=== PATIENT | male | born 1975 | race Hispanic/Latino ===

== ENCOUNTER 2018-01-11 06:37 | Emergency (ER) | payer OTHER ==
[2018-01-11] MEDS ORDERED: FLUORESCEIN SODIUM 0.6 MG/WRAP ONE (06:57)
[2018-01-11] MEDS ORDERED: TETRACAINE HCL 0.5% 2ML OPTH ONE (06:57)
--- NOTE | 2018-01-11 07:23 | ER ---
Nurse's Notes [facility] Name: Rolando Tidwell Age: 42 yrs Sex: Male : 1975 Arrival Date: 01/11/2018 Time: 06:37 Bed 7 Private MD: Diagnosis: Injury of conjunctiva and corneal abrasion without foreign body, right eye Presentation: 01/11 06:51 Presenting complaint: Patient states: he was working yesterday and got dust in his eye bb which was very itchy yesterday but this morning his vision in his right eye seems cloudy and it's reddened and irritated but denies pain to right eye. Transition of care: patient was not received from another setting of care. Onset of symptoms was January 10, 2018. Risk Assessment: Do you want to hurt yourself or someone else? Patient reports no desire to harm self or others. Initial Sepsis Screen: Does the patient meet any 2 criteria? No. Patient's initial sepsis screen is negative. Does the patient have a suspected source of infection? No. Patient's initial sepsis screen is negative. Care prior to arrival: None. 06:51 Method Of Arrival: Ambulatory bb 06:51 Acuity: FREDA 4 bb Historical: - Allergies: 06:56 No Known Allergies; bb - Home Meds: 06:56 Metformin Oral [Active]; bb - PMHx: 06:56 Diabetes - NIDDM; bb - PSHx: 06:56 None; bb - Immunization history:: Adult Immunizations unknown, Last tetanus immunization: unknown. - Social history:: Smoking status: Patient/guardian denies using tobacco, Patient/guardian denies using alcohol, street drugs. - Ebola Screening: : No symptoms or risks identified at this time. Screenin:45 Abuse screen: Denies threats or abuse. Denies injuries from another. Nutritional sg screening: No deficits noted. Tuberculosis screening: No symptoms or risk factors identified. Never had TB. Fall Risk None identified. Assessment: 06:49 General: Appears in no apparent distress. comfortable, Behavior is calm, cooperative, ao appropriate for age. Pain: Complains of pain in right eye Pain currently is 0 out of 10 on a pain scale. Neuro: Level of Consciousness is awake, alert, obeys commands, Oriented to person, place, time, situation, Appropriate for age Moves all extremities. Full function Speech is normal, Facial symmetry appears normal, Pupils are PERRLA. Cardiovascular: Capillary refill < 3 seconds Patient's skin is warm and dry. Respiratory: Airway is patent Respiratory effort is even, unlabored, Respiratory pattern is regular, symmetrical. GI: Abdomen is non-distended. : No signs and/or symptoms were reported regarding the genitourinary system. EENT: Eyes are tearing on outer aspect of conjuctiva of right eye, iris of right eye and inner aspect of conjuctiva of right eye. Derm: Skin is intact, Skin is pink, warm \T\ dry. normal, Skin temperature is warm. Musculoskeletal: No signs and/or symptoms reported regarding the musculoskeletal system. Range of motion: intact in all extremities. Vital Signs: 06:56 BP 151 / 95; Pulse 79; Resp 16 S; Temp 98.4(O); Pulse Ox 99% on R/A; Weight 88.45 kg bb (R); Height 5 ft. 8 in. (172.72 cm) (R); Pain 0/10; 07:45 BP 130 / 86; Pulse 73 MON; Resp 16 S; Pulse Ox 98% on R/A; Pain 0/10; sg 06:56 Body Mass Index 29.65 (88.45 kg, 172.72 cm) bb Visual Acuity: 06:56 Left Eye Visual acuity 20/25, Pupil size 4 mm, ; Right Eye Visual acuity 20/100, Pupil bb size 4 mm, ; Both Eyes Visual acuity 20/25; Without Lenses; ED Course: 06:37 Patient arrived in ED. ds1 06:53 Triage completed. bb 06:56 Arm band placed on Patient placed in an exam room, on a stretcher, on pulse oximetry. bb 07:00 Assist provider with eye exam of right eye. using fluorescein stain. sg 07:12 Rafael Tidwell PA is PHCP. jr8 07:12 Wilfredo Larose MD is Attending Physician. jr8 07:13 Brett Pastor, BHUPENDRA is Primary Nurse. sg 07:22 Juan Pablo Case MD is Referral Physician. jr8 07:45 Patient has correct armband on for positive identification. Pulse ox on. NIBP on. sg 07:45 No provider procedures requiring assistance completed. Patient did not have IV access sg during this emergency room visit. Administered Medications: 07:30 Drug: Tetracaine Drops 0.5 % 1 drops Route: Ophthalmic; Site: right eye; 07:48 Drug: Gentamicin Drops 0.3 % 2 drops Route: Ophthalmic; Site: right eye; Outcome: 07:23 Discharge ordered by . willa 07:45 Discharged to home ambulatory. sg 07:45 Condition: good 07:45 Discharge instructions given to patient, Instructed on discharge instructions, follow up and referral plans. the need for admit, medication usage, safety practices, Demonstrated understanding of instructions, follow-up care, medications, Prescriptions given X 1. 07:48 Patient left the ED. sg 07:52 Patient left the ED. aa5 Signatures: Brett Pastor RN RN Ashley Horta ds1 Myesha Sandy RN RN Jolynn Quintero RN RN aa5 Rafael Tidwell PA PA jrVince Pillai RN RN lamont
--- NOTE | 2018-01-11 07:23 | EDPHYS ---
Physician Documentation [facility] Name: Rolando Tidwell Age: 42 yrs Sex: Male : 1975 Arrival Date: 01/11/2018 Time: 06:37 Bed 7 Private MD: ED Physician Wilfredo Larose HPI: 01/11 07:30 This 42 yrs old Male presents to ER via Ambulatory with complaints of Foreign jr8 Body In Eye. 07:30 The patient is experiencing blurred vision, pain, redness, tearing. Onset: The jr8 symptoms/episode began/occurred acutely, yesterday. Duration: the symptoms are continuous. Aggravated by rubbing, Alleviated by nothing. Associated signs and symptoms: Pertinent positives: None. Patient does not utilize any form of vision correction. Severity of symptoms: At their worst the symptoms were mild in the emergency department the symptoms are unchanged. The patient has not experienced similar symptoms in the past. The patient has not recently seen a physician. Patient stated that he was outside working on a [employer]. Stated that it was windy and felt irritation in eye yesterday while working that has persisted through today without relief . Historical: - Allergies: 06:56 No Known Allergies; bb - Home Meds: 06:56 Metformin Oral [Active]; bb - PMHx: 06:56 Diabetes - NIDDM; bb - PSHx: 06:56 None; bb - Immunization history:: Adult Immunizations unknown, Last tetanus immunization: unknown. - Social history:: Smoking status: Patient/guardian denies using tobacco, Patient/guardian denies using alcohol, street drugs. - Ebola Screening: : No symptoms or risks identified at this time. ROS: 07:30 Constitutional: Negative for fever, chills, and weight loss. jr8 07:30 Eyes: Positive for blurry vision, pain, redness, tearing. 07:30 All other systems are negative. Exam: 07:30 Visual Acuity: Visual acuity is within normal limits. jr8 07:30 Head/Face: Normocephalic, atraumatic. ENT: Nares patent. No nasal discharge, no septal abnormalities noted. Tympanic membranes are normal and external auditory canals are clear. Oropharynx with no redness, swelling, or masses, exudates, or evidence of obstruction, uvula midline. Mucous membranes moist. Cardiovascular: Regular rate and rhythm with a normal S1 and S2. No gallops, murmurs, or rubs. Normal PMI, no JVD. No pulse deficits. Respiratory: Lungs have equal breath sounds bilaterally, clear to auscultation and percussion. No rales, rhonchi or wheezes noted. No increased work of breathing, no retractions or nasal flaring. Skin: Warm, dry with normal turgor. Normal color with no rashes, no lesions, and no evidence of cellulitis. MS/ Extremity: Pulses equal, no cyanosis. Neurovascular intact. Full, normal range of motion. Neuro: Awake and alert, GCS 15, oriented to person, place, time, and situation. Cranial nerves II-XII grossly intact. Motor strength 5/5 in all extremities. Sensory grossly intact. Cerebellar exam normal. Normal gait. 07:30 Eyes: Periorbital structures: appear normal, Pupils: equal, round, and reactive to light and accomodation, Extraocular movements: intact throughout, Conjunctiva: injected, in the right eye, Corneas: abrasion, that is small, approximately 3 mm(s), on the right, at 6 o'clock, a fluorescein strip employed to appreciate the findings. Vital Signs: 06:56 BP 151 / 95; Pulse 79; Resp 16 S; Temp 98.4(O); Pulse Ox 99% on R/A; Weight 88.45 kg bb (R); Height 5 ft. 8 in. (172.72 cm) (R); Pain 0/10; 07:45 BP 130 / 86; Pulse 73 MON; Resp 16 S; Pulse Ox 98% on R/A; Pain 0/10; sg 06:56 Body Mass Index 29.65 (88.45 kg, 172.72 cm) bb Visual Acuity: 06:56 Left Eye Visual acuity 20/25, Pupil size 4 mm, ; Right Eye Visual acuity 20/100, Pupil bb size 4 mm, ; Both Eyes Visual acuity 20/25; Without Lenses; Procedures: 07:30 Eye Exam: Fluorescein. jr8 MDM: 07:12 Patient medically screened. jr8 07:22 Data reviewed: vital signs, nurses notes, and as a result, I will discharge patient. jr8 Data interpreted: Pulse oximetry: on room air is 99 %. Interpretation: normal. Counseling: I had a detailed discussion with the patient and/or guardian regarding: the historical points, exam findings, and any diagnostic results supporting the discharge/admit diagnosis, the need for outpatient follow up, an opthalmologist, to return to the emergency department if symptoms worsen or persist or if there are any questions or concerns that arise at home. Administered Medications: 07:30 Drug: Tetracaine Drops 0.5 % 1 drops Route: Ophthalmic; Site: right eye; sg 07:48 Drug: Gentamicin Drops 0.3 % 2 drops Route: Ophthalmic; Site: right eye; sg Disposition: 09:57 Co-signature as Attending Physician, Wilfredo Larose MD. rn Disposition: 01/11/18 07:23 Discharged to Home. Impression: Injury of conjunctiva and corneal abrasion without foreign body, right eye. - Condition is Stable. - Discharge Instructions: Corneal Abrasion. - Prescriptions for Gentamicin 0.3 % Ophthalmic Drops - instill 2 drops by OPHTHALMIC route every 4 hours for 7 days; 1 bottle. - Work release form, Medication Reconciliation Form, Thank You Letter, Antibiotic Education, Prescription Opioid Use form. - Follow up: Juan Pablo Case MD; When: 24 Hours; Reason: Recheck today's complaints, Continuance of care, Re-evaluation by your physician. - Problem is new. - Symptoms have improved. Signatures: Brett Pastor RN RN sg Ballard, Brenda, RN RN bb Nieto, Roman, MD MD rn Calderon, Audri, RN RN aa5 Rafael Tidwell PA PA jr8 Corrections: (The following items were deleted from the chart) 07:34 07:30 Eye Exam: Tetracaine, willa jr8 07:48 07:23 01/11/2018 07:23 Discharged to Home. Impression: Injury of conjunctiva and sg corneal abrasion without foreign body, right eye. Condition is Stable. Forms are Medication Reconciliation Form, Thank You Letter, Antibiotic Education, Prescription Opioid Use. Follow up: Juan Pablo Case; When: 24 Hours; Reason: Recheck today's complaints, Continuance of care, Re-evaluation by your physician. Problem is new. Symptoms have improved. jr8 07:52 07:48 01/11/2018 07:23 Discharged to Home. Impression: Injury of conjunctiva and aa5 corneal abrasion without foreign body, right eye. Condition is Stable. Discharge Instructions: Corneal Abrasion. Prescriptions for Gentamicin 0.3 % Ophthalmic Drops - instill 2 drops by OPHTHALMIC route every 4 hours for 7 days; 1 bottle. and Forms are Medication Reconciliation Form, Thank You Letter, Antibiotic Education, Prescription Opioid Use. Follow up: Juan Pablo Case; When: 24 Hours; Reason: Recheck today's complaints, Continuance of care, Re-evaluation by your physician. Problem is new. Symptoms have improved. sg
[2018-01-11] MEDS ORDERED: GENTAMICIN 0.3% OPTH DROP 5ML ONE (07:57)
== END 2018-01-11 07:52 | disposition home or self-care (01) ==
LOC: ER 06:37
DX: S05.01XA Injury of conjunctiva and corneal abrasion without foreign body, right eye, initial encounter (principal); E11.9 Type 2 diabetes mellitus without complications
CPT/HCPCS: 99284

== ENCOUNTER 2018-12-10 15:48 | Inpatient (IN) | payer OTHER ==
--- OUTSIDE RECORDS SUMMARY | 2018-12-10 15:57 | XMS REPORT | Clinical Summary ---
:1975 Author Organization [facility] Address [address] [place] [id number] Care Team Providers Name Role Phone Asked, No Pcp Primary Care Provider Unavailable Allergies Not on File Medications Not on file Active Problems Not on file Encounters Date Type Specialty Care Team Description 01/16/2018 Lab Lab Tin Gonzalez MD 01/16/2018 Lab Lab Asked, No Pcp Tin Gonzalez MD after 12/09/2017 Social History Tobacco Use Types Packs/Day Years Used Date Never Assessed Sex Assigned at Date Recorded Not on file Job Start Date Occupation Industry Not on file Not on file Not on file Travel History Travel Start Travel End No recent travel history available. Last Filed Vital Signs Not on file Plan of Treatment Health Maintenance Due Date Last Done Comments INFLUENZA VACCINE 01/18/2019 Procedures Procedure Name Priority Date/Time Associated Diagnosis Comments FUNGUS SMEAR Routine 01/16/2018 1:00 PM Results for this CDT procedure are in the results section. GRAM STAIN Routine 01/16/2018 1:00 PM Results for this CDT procedure are in the results section. FUNGUS CULTURE Routine 01/16/2018 1:00 PM Results for this CDT procedure are in the results section. EYE CULTURE, Routine 01/16/2018 1:00 PM Results for this ANAEROBIC CDT procedure are in the results section. EYE CULTURE Routine 01/16/2018 1:00 PM Results for this CDT procedure are in the results section. ACRIDINE ORANGE Routine 01/16/2018 1:00 PM Results for this STAIN CDT procedure are in the results section. after 12/09/2017 Results Fungus smear (01/16/2018 1:00 PM CDT) Fungus smear No fungi observed. [facility] DEPARTMENT OF Comment: PATHOLOGY AND Specimen Information [facility] Specimen Source: Corneal scraping Specimen Site: Right Eye Specimen Corneal scraping Performing Organization Address City/State/[facility] Phone Number [facility] DEPARTMENT OF PATHOLOGY AND [address] [place] [phone] [facility] Eye culture, anaerobic (01/16/2018 1:00 PM CDT) Eye culture Brucella blood agar: [facility] DEPARTMENT OF isolate, anaerobic No anaerobes isolated after 7 days. PATHOLOGY AND [facility] Comment: Specimen Information Specimen Source: Corneal scraping Specimen Site: Right Eye Specimen Corneal scraping Performing Organization Address [facility] Phone Number [facility] DEPARTMENT OF PATHOLOGY AND [address] [place] [address] MEDICINE Acridine orange stain (01/16/2018 1:00 PM CDT) Acridine orange Rare WBC's [facility] DEPARTMENT OF stain No organisms seen PATHOLOGY AND [facility] Comment: Specimen Information Specimen Source: Corneal scraping Specimen Site: Right Eye Specimen Corneal scraping Performing Organization Address [facility] Number [facility] DEPARTMENT OF PATHOLOGY AND [address] [place] [phone] GENOMIC MEDICINE Eye culture (01/16/2018 1:00 PM CDT) Eye culture Blood and Chocolate agars and Thioglycollate broth: [facility] DEPARTMENT OF isolate No growth after 7 days. PATHOLOGY AND [facility] Comment: Specimen Information Specimen Source: Corneal scraping Specimen Site: Right Eye Specimen Corneal scraping Performing Organization Address [facility] Phone Number [facility] DEPARTMENT OF PATHOLOGY AND [address] [place] [phone] [place] [address] MEDICINE Gram stain (01/16/2018 1:00 PM CDT) Gram stain isolate Many WBC's [facility] DEPARTMENT OF No organisms seen PATHOLOGY AND [facility] Comment: Specimen Information Specimen Source: Corneal scraping Specimen Site: Right Eye Specimen Corneal scraping Performing Organization Address [facility] Phone Number [facility] DE[facility]MENT OF PATHOLOGY AND [address] [place] [phone] [place] [address] MEDICINE Fungus culture (01/16/2018 1:00 PM CDT) Fungus culture Curvularia species [facility] DEPARTMENT OF isolate At the present time there are no CLSI guidelines for the performance PATHOLOGY AND and/or interpretation of susceptibility testing for the above organism GENOMIC MEDICINE and/or the indicated antimicrobial agent(s). Susceptibility performed by [employer] [address] [place] [address] Natamycin susceptibility performed by [facility], [place] [employer] [place] [facility] [employer] [address] [place] [address] (A) Comment: Specimen Information Specimen Source: Corneal scraping Specimen Site: Right Eye Specimen Corneal scraping Organism Antibiotic Method Susceptibility Curvularia species Amphotericin B BP 0.25 mcg/mL Curvularia species Anidulofungin BP 4 mcg/mL Curvularia species Caspofungin BP 4 mcg/mL Curvularia species Itraconazole BP 0.5 mcg/mL Curvularia species Micafungin BP 4 mcg/mL Curvularia species Posiconazole BP <=0.06 mcg/mL Curvularia species Voriconazole BP 0.5 mcg/mL Curvularia species Natamycin BP 4 mcg/mL Performing Organization Address City/State/[facility] Phone Number [facility] DEPARTMENT OF PATHOLOGY AND [address] [place] [address] [employer] MEDICINE after 12/09/2017 Advance Directives Patient has advance care planning documents on file. For more information, please contact:Ridge Jones[address] [place] [phone]
[2018-12-10] MEDS ORDERED: NA CHLORIDE 0.9% 1,000 ML ONE (16:51)
[2018-12-10 17:06] LABS: Absolute Lymphocytes (CBC) 1.3 K/uL (0.7-4.9); Basophils % 0.6 % (0-1.3); Eosinophils % 0.8 % (0-4.4); Hematocrit 35.7 % (39.6-49.0); Lymphocytes % 7.8 % (15.3-44.8); MPV 7.3 fL (7.6-11.3); Monocytes % 7.8 % (3.3-12.3); RBC Red Blood Cell Count 4.02 M/uL (4.33-5.43)
[2018-12-10 17:20] LABS: Potassium 3.5 mmol/L (3.5-5.1)
--- NOTE | 2018-12-10 17:27 | RAD REPORT ---
EXAM DESCRIPTION: RAD - Ankle Left 3 View - 12/10/2018 4:47 pm CLINICAL HISTORY: Ankle pain, twisting injury COMPARISON: None. FINDINGS: No fracture, dislocation or periosteal reaction. No joint effusion seen. No joint space na rrowing. Soft tissues are prominent around the ankle joint. Baseline for the patient is unknown. Xi rial tree calcifications are present. IMPRESSION: Negative left ankle examination for fracture or acute bone finding. Soft tissue swelling around the ankle joint.
--- NOTE | 2018-12-10 17:30 | RAD REPORT ---
EXAM DESCRIPTION: RAD - Foot Left 3 View - 12/10/2018 4:47 pm CLINICAL HISTORY: Foot pain, twisting injury to the foot and ankle COMPARISON: None. FINDINGS: An acute traumatic fracture is not identified. Soft tissues of the fourth digit are signif icantly thickened. There is very extensive bone destruction with near complete loss of the proximal, middle and distal fourth phalanges. Bone loss changes are evident as well in the fourth metatarsal he ad. Arterial tree calcifications are present. No other bone destructive process seen. No air in the soft tissues. IMPRESSION: Extensive left fourth toe osteomyelitis change with near complete destruction of the fou rth toe. Bone destructive changes involve the fourth metatarsal head as well.
--- NOTE | 2018-12-10 18:36 | EDPHYS ---
Physician Documentation [facility] Name: Rolando Tidwell Age: 43 yrs Sex: Male : 1975 Arrival Date: 12/10/2018 Time: 15:50 Bed 19 Private MD: ED Physician Tang Nieves HPI: 12/10 16:30 This 43 yrs old Male presents to ER via Ambulatory with complaints of Ankle cp Injury. 16:30 The patient presents with pain, that is acute, swelling, tenderness. cp 16:30 The complaints affect the left lower leg and left foot. Context: resulted from an cp unknown cause, the patient can fully bear weight, the patient is able to ambulate, Problem is a result from a previous injury: No. Historical: - Allergies: 16:05 No Known Allergies; aa5 - Home Meds: 16:05 Metformin Oral [Active]; atorvastatin oral oral [Active]; insulin degludec and aa5 liraglutide injection [Active]; - PMHx: 16:05 Diabetes - IDDM; Hyperlipidemia; aa5 - PSHx: 16:05 None; aa5 - Immunization history:: Adult Immunizations up to date. - Social history:: Smoking status: Patient/guardian denies using tobacco. - Ebola Screening: : No symptoms or risks identified at this time. ROS: 16:35 Eyes: Negative for injury, pain, redness, and discharge. cp 16:35 Constitutional: Negative for body aches, chills, fever, poor PO intake. 16:35 ENT: Negative for drainage from ear(s), ear pain, sore throat, difficulty swallowing, cp difficulty handling secretions. 16:35 Cardiovascular: Negative for chest pain, palpitations. 16:35 Respiratory: Negative for cough, shortness of breath, wheezing. 16:35 Abdomen/GI: Negative for abdominal pain, nausea, vomiting, and diarrhea, black/tarry stool, rectal bleeding. 16:35 MS/extremity: Positive for pain, swelling, tenderness, warmth, of the left foot and left lower leg, Negative for paresthesias. 16:35 Skin: Positive for cellulitis, erythema, of the left foot. 16:35 Neuro: Negative for altered mental status, headache, weakness. 16:35 All other systems are negative. Exam: 16:42 Constitutional: The patient appears in no acute distress, alert, awake, cp non-diaphoretic, non-toxic, well developed, well nourished. 16:42 Head/Face: Normocephalic, atraumatic. cp 16:45 Eyes: Periorbital structures: appear normal, Conjunctiva: normal, no exudate, no cp injection, Sclera: no appreciated abnormality, Lids and lashes: appear normal, bilaterally. 16:45 ENT: External ear(s): are unremarkable, Nose: is normal, Mouth: Lips: moist, Oral cp mucosa: pink and intact, moist, Posterior pharynx: is normal, airway is patent, no erythema, no exudate. 16:45 Chest/axilla: Inspection: normal. 16:45 Cardiovascular: Rate: tachycardic, Rhythm: regular, Edema: pedal edema, that is moderate, ankle edema, that is moderate, JVD: is not appreciated. 16:45 Respiratory: the patient does not display signs of respiratory distress, Respirations: normal, no use of accessory muscles, no retractions, no splinting, no tachypnea, labored breathing, is not present, Breath sounds: are clear throughout, no decreased breath sounds, no stridor, no wheezing. 16:45 Abdomen/GI: Exam negative for discomfort, distension, guarding, Inspection: abdomen appears normal. 16:45 Back: pain, is absent, ROM is normal. 16:45 Skin: cellulitis, that is moderate, irregular, on the left foot, superficial open wound with purulent drainage fourth left toe. 16:45 Neuro: Orientation: to person, place \T\ time. Mentation: is normal, Cerebellar function: is grossly normal, Motor: moves all fours, strength is normal. 18:05 ECG was reviewed by the Attending Physician. cp Vital Signs: 16:05 BP 144 / 81; Pulse 116; Resp 18 S; Temp 99.5(O); Pulse Ox 96% on R/A; Weight 85.28 kg aa5 (R); Height 5 ft. 8 in. (172.72 cm) (R); Pain 4/10; 16:45 BP 144 / 87; Pulse 109; Resp 20; Pulse Ox 100% on R/A; em 17:51 BP 140 / 81; Pulse 116; Resp 18; Temp 99.7(O); Pulse Ox 99% on R/A; Pain 0/10; em 18:56 BP 151 / 90; Pulse 105; Resp 20; Pulse Ox 99% on R/A; Pain 0/10; em 19:15 BP 139 / 84; Pulse 109; Resp 20 S; Temp 99.7(O); Pulse Ox 100% on R/A; cc3 20:05 BP 135 / 87; Pulse 105; Resp 19 S; Temp 99.7(O); Pulse Ox 100% on R/A; cc3 16:05 Body Mass Index 28.59 (85.28 kg, 172.72 cm) aa5 MDM: 16:08 Patient medically screened. cp 17:00 Differential diagnosis: cellulitis, fracture, osteomyelitis, sepsis. cp 18:15 Physician consultation: Jory Ray MD was called at 18:15, was contacted at 18:15, cp regarding admission, to the medical/surgical unit. patient's condition. 18:15 Data reviewed: vital signs, nurses notes, lab test result(s), EKG, radiologic studies, cp plain films, ultrasound, and as a result, I will admit patient. 18:15 Test interpretation: by ED physician or midlevel provider: ECG. 12/10 16:26 Order name: Blood Culture Adult (2) 12/10 16:26 Order name: CBC with Diff; Complete Time: 17:55 12/10 16:26 Order name: BMP; Complete Time: 17:55 12/10 16:26 Order name: Lactate; Complete Time: 17:55 12/10 16:26 Order name: Procalcitonin; Complete Time: 18:45 12/10 18:12 Order name: CRP; Complete Time: 18:10 cp 12/10 16:26 Order name: XRAY Ankle LEFT 3 view; Complete Time: 17:55 / 16:26 Order name: XRAY Foot LEFT 3 View; Complete Time: 17:55 / 16:26 Order name: US Extremity Venous Unilateral Ltd; Complete Time: 18:10 cp 06/ 18:12 Order name: Sed Rate; Complete Time: 18:10 / 18:25 Order name: Wound Culture 12/10 16:26 Order name: Accucheck Blood Glucose; Complete Time: 16:48 12/10 16:26 Order name: IV; Complete Time: 16:52 cp 12/10 17:56 Order name: EKG; Complete Time: 17:58 cp 12/10 17:56 Order name: EKG - Nurse/Tech; Complete Time: 18:15 cp 12/10 18:45 Order name: Diet Ada 1800 Robb; Complete Time: 18:46 cp 12/10 18:57 Order name: CONS Pharmacy Consult EDMS 12/10 18:57 Order name: CONS Physician Consult EDMS EC:05 Rate is 111 beats/min. Rhythm is regular. [place] interval is normal. QRS interval is cp prolonged at 106 msec. QT interval is normal. Interpreted by me. Reviewed by me. Administered Medications: 16:48 Drug: NS 0.9% 1000 ml Route: IV; Rate: 1 bolus; Site: right forearm; em 17:57 Follow up: IV Status: Completed infusion; IV Intake: 1000ml em 18:44 Drug: Zosyn 3.375 grams Route: IVPB; Infused Over: 60 mins; Site: right forearm; em 19:50 Follow up: Response: No adverse reaction; IV Status: Completed infusion; IV Intake: cc3 100ml 19:30 Drug: Insulin Regular Human 5 units {Co-Signature: ak1 (Suma Mcmahon RN).} Route: IVP; cc3 Site: right forearm; 19:55 Follow up: Response: No adverse reaction; Blood sugar is lowered cc3 19:52 Drug: vancoMYCIN 1 grams Route: IVPB; Infused Over: 2 hrs; Site: right forearm; cc3 20:00 Follow up: Response: No adverse reaction; IV Status: Infusion continued upon admission cc3 Point of Care Testing: Blood Glucose: 16:45 Blood Glucose: 268 mg/dL; em 19:55 Blood Glucose: 161 mg/dL; cc3 Ranges: Critical Glucose Levels:Adult <50 mg/dl or >400 mg/dl <40 mg/dl or >180 mg/dl Disposition: 12/11 09:59 Co-signature as Attending Physician, Tang Nieves MD I agree with the assessment and nikolay plan of care. Disposition: 12/10/18 18:35 Hospitalization ordered by Devi Soares for Inpatient Admission. Preliminary diagnosis are Osteomyelitis, unspecified - left fourth toe, Diabetes mellitus due to underlying condition with hyperglycemia. - Bed requested for Telemetry/MedSurg (Inpatient). - Status is Inpatient Admission. cc3 - Condition is Stable. - Problem is new. - Symptoms have improved. UTI on Admission? No Signatures: Dispatcher [employer] Radha Gold, RN RN Tang Alfred MD MD cha Munoz, Edgar, TAG MARKER TAG MARKER Jolynn Zepeda RN RN aa5 Tang Mancia, PA PA Luciana Arnett 3 Suma Mcmahon RN ak1 Corrections: (The following items were deleted from the chart) 12/10 17:56 17:56 EKG - Nurse/Tech ordered. cp cp 19:18 18:35 Hospitalization Ordered by Devi Soares MD for Inpatient Admission. Preliminary dw diagnosis is Osteomyelitis, unspecified - left fourth toe; Diabetes mellitus due to underlying condition with hyperglycemia. Bed requested for Telemetry/MedSurg (Inpatient). Status is Inpatient Admission. Condition is Stable. Problem is new. Symptoms have improved. UTI on Admission? No. cp 20:17 19:18 12/10/2018 18:35 Hospitalization Ordered by Devi Soares MD for Inpatient cc3 Admission. Preliminary diagnosis is Osteomyelitis, unspecified - left fourth toe; Diabetes mellitus due to underlying condition with hyperglycemia. Bed requested for Telemetry/MedSurg (Inpatient). Status is Inpatient Admission. Condition is Stable. Problem is new. Symptoms have improved. UTI on Admission? No. dw
--- NOTE | 2018-12-10 18:36 | ER ---
Nurse's Notes [facility] Name: Rolando Tidwell Age: 43 yrs Sex: Male : 1975 Arrival Date: 12/10/2018 Time: 15:50 Bed 19 Private MD: Diagnosis: Osteomyelitis, unspecified-left fourth toe;Diabetes mellitus due to underlying condition with hyperglycemia Presentation: 12/10 16:02 Presenting complaint: Patient states: "I twisted my ankle about 2 weeks ago and it's aa5 swollen and the bottom of my foot is purple". Pt c/o pain to left ankle and left foot. Transition of care: patient was not received from another setting of care. Onset of symptoms was November 2018. Risk Assessment: Do you want to hurt yourself or someone else? Patient reports no desire to harm self or others. Care prior to arrival: None. 16:02 Method Of Arrival: Ambulatory aa5 16:02 Acuity: FREDA 3 aa5 16:10 Initial Sepsis Screen: Does the patient meet any 2 criteria? HR > 90 bpm. No. Patient's em initial sepsis screen is negative. Does the patient have a suspected source of infection? Yes: Skin breakdown/wound. Historical: - Allergies: 16:05 No Known Allergies; aa5 - Home Meds: 16:05 Metformin Oral [Active]; atorvastatin oral oral [Active]; insulin degludec and aa5 liraglutide injection [Active]; - PMHx: 16:05 Diabetes - IDDM; Hyperlipidemia; aa5 - PSHx: 16:05 None; aa5 - Immunization history:: Adult Immunizations up to date. - Social history:: Smoking status: Patient/guardian denies using tobacco. - Ebola Screening: : No symptoms or risks identified at this time. Screenin:45 Abuse screen: Denies threats or abuse. Nutritional screening: No deficits noted. em Tuberculosis screening: No symptoms or risk factors identified. Fall Risk None identified. Assessment: 16:10 General: Appears in no apparent distress. comfortable, Behavior is calm, cooperative, em Denies fever. Pain: Complains of pain in left foot Pain currently is 4 out of 10 on a pain scale. Pain began 2 weeks ago. Neuro: Level of Consciousness is awake, alert, obeys commands, Oriented to person, place, time, situation. Cardiovascular: Capillary refill < 3 seconds Patient's skin is warm and dry. Pulses are 2+ in right dorsalis pedis artery and left dorsalis pedis artery. Respiratory: Airway is patent Respiratory effort is even, unlabored, Respiratory pattern is regular, symmetrical. Derm: Wound noted left third toe and left fourth toe. Musculoskeletal: Capillary refill < 3 seconds, Range of motion: intact in all extremities, Swelling present in left eid, anterior aspect of left ankle and dorsum of left foot. 17:00 Reassessment: Patient appears in no apparent distress at this time. Patient and/or em family updated on plan of care and expected duration. Pain level reassessed. Patient is alert, oriented x 3, equal unlabored respirations, skin warm/dry/pink. 18:00 Reassessment: Patient appears in no apparent distress at this time. Patient and/or em family updated on plan of care and expected duration. Pain level reassessed. Patient is alert, oriented x 3, equal unlabored respirations, skin warm/dry/pink. Patient denies pain at this time. 18:45 Reassessment: US at bedside. em 19:15 Reassessment: Patient appears in no apparent distress at this time. Patient and/or cc3 family updated on plan of care and expected duration. Pain level reassessed. Patient is alert, oriented x 3, equal unlabored respirations, skin warm/dry/pink. Received this male patient from morning shift [facility] as a case of osteomyelitis left 4th toe for admission to room 217, with IV cannula gauge 20 at the right forearm with ongoing IV antibiotic of Zosyn 3.375 grams infusing well. Patient denies pain at this time. 20:00 Reassessment: Patient appears in no apparent distress at this time. Patient and/or cc3 family updated on plan of care and expected duration. Pain level reassessed. Patient is alert, oriented x 3, equal unlabored respirations, skin warm/dry/pink. Room available in 217, report called and handed over to BHUPENDRA Gaxiola for continuity of care and management. 20:15 Reassessment: Patient appears in no apparent distress at this time. Patient and/or cc3 family updated on plan of care and expected duration. Pain level reassessed. Patient is alert, oriented x 3, equal unlabored respirations, skin warm/dry/pink. Patient left ER for admission vitally stable by wheelchair escorted by founder and chief technical officer Gerard. Patient denies pain at this time. Patient states feeling better. Patient states symptoms have improved. Vital Signs: 16:05 BP 144 / 81; Pulse 116; Resp 18 S; Temp 99.5(O); Pulse Ox 96% on R/A; Weight 85.28 kg aa5 (R); Height 5 ft. 8 in. (172.72 cm) (R); Pain 4/10; 16:45 BP 144 / 87; Pulse 109; Resp 20; Pulse Ox 100% on R/A; em 17:51 BP 140 / 81; Pulse 116; Resp 18; Temp 99.7(O); Pulse Ox 99% on R/A; Pain 0/10; em 18:56 BP 151 / 90; Pulse 105; Resp 20; Pulse Ox 99% on R/A; Pain 0/10; em 19:15 BP 139 / 84; Pulse 109; Resp 20 S; Temp 99.7(O); Pulse Ox 100% on R/A; cc3 20:05 BP 135 / 87; Pulse 105; Resp 19 S; Temp 99.7(O); Pulse Ox 100% on R/A; cc3 16:05 Body Mass Index 28.59 (85.28 kg, 172.72 cm) aa5 ED Course: 15:50 Patient arrived in ED. rg4 16:03 Triage completed. aa5 16:03 Arm band placed on. aa5 16:08 Tang Mancia PA is PHCP. cp 16:08 Tang Nieves MD is Attending Physician. cp 16:11 Jesus Leija LVN is Primary Nurse. em 16:45 Patient has correct armband on for positive identification. Bed in low position. Call em light in reach. Pulse ox on. NIBP on. 16:45 Inserted saline lock: 20 gauge in right forearm, using aseptic technique. Blood em collected. 16:45 Initial lab(s) drawn, by me, sent to lab. First set of blood cultures drawn. em 16:48 XRAY Ankle LEFT 3 view In Process Unspecified. EDMS 16:48 XRAY Foot LEFT 3 View In Process Unspecified. EDMS 18:13 EKG done, by ED staff, reviewed by Tang SHERWOOD. jb1 18:34 Devi Soares MD is Hospitalizing Provider. cp 18:57 US Extremity Venous Unilateral Ltd In Process Unspecified. EDMS 20:00 No provider procedures requiring assistance completed. Patient admitted, IV remains in cc3 place. Administered Medications: 16:48 Drug: NS 0.9% 1000 ml Route: IV; Rate: 1 bolus; Site: right forearm; em 17:57 Follow up: IV Status: Completed infusion; IV Intake: 1000ml em 18:44 Drug: Zosyn 3.375 grams Route: IVPB; Infused Over: 60 mins; Site: right forearm; em 19:50 Follow up: Response: No adverse reaction; IV Status: Completed infusion; IV Intake: cc3 100ml 19:30 Drug: Insulin Regular Human 5 units {Co-Signature: ak1 (Suma Mcmahon RN).} Route: IVP; cc3 Site: right forearm; 19:55 Follow up: Response: No adverse reaction; Blood sugar is lowered cc3 19:52 Drug: vancoMYCIN 1 grams Route: IVPB; Infused Over: 2 hrs; Site: right forearm; cc3 20:00 Follow up: Response: No adverse reaction; IV Status: Infusion continued upon admission cc3 Point of Care Testing: Blood Glucose: 16:45 Blood Glucose: 268 mg/dL; em 19:55 Blood Glucose: 161 mg/dL; cc3 Ranges: Intake: 17:57 IV: 1000ml; Total: 1000ml. em 19:50 IV: 100ml; Total: 1100ml. cc3 Outcome: 18:35 Decision to Hospitalize by Provider. cp 20:15 Admitted to Med/surg accompanied by tech, via wheelchair, room 217, with chart, Report cc3 called to BELLA Gaxiola RN 20:15 Condition: stable 20:15 Instructed on the need for admit, Demonstrated understanding of instructions. 20:17 Patient left the ED. cc3 Signatures: Dispatcher [employer] EDMushtaq Garcia1 Jesus Leija, RN ENDOCRINOLOGY RN ENDOCRINOLOGY em Jolynn Oshea, RN RN aa5 Tang Mancia PA PA cp Garcia, Rubi rg4 Luciana Arnett cc3 Suma Mcmahon RN ak1 Corrections: (The following items were deleted from the chart) 16:06 16:02 Acuity: FREDA 4 aa5 aa5
[2018-12-10] MEDS ORDERED: VANCOMYCIN/NS 1 gm 1 GM/250 ML BAG IV ONE (18:45)
[2018-12-10] MEDS ORDERED: HYDROCODONE/APAP 5/325 MG TAB PO PRN (18:51)
[2018-12-10] MEDS ORDERED: ONDANSETRON 4 MG/2 ML VIAL IV PRN (18:51)
[2018-12-10] MEDS ORDERED: PIPER/TAZO/NS 3.375gm 3.375 GM/100 ML BAG ONE (18:52)
[2018-12-10] MEDS ORDERED: GLUCAGON 1 MG/VIAL IM PRN (18:54)
[2018-12-10] MEDS ORDERED: D50W 25 GM/50 ML SYRINGE IV PRN (18:54)
[2018-12-10] MEDS ORDERED: VANCOMYCIN/NS 1 gm 1 GM/250 ML BAG IVPB SCH (19:00)
[2018-12-10] MEDS: NA CHLORIDE 0.9% 1,000 ML IV SCH ×2 (19:00→21:05)
[2018-12-10] MEDS ORDERED: ACETAMINOPHEN 500 MG TAB PO PRN (19:00)
[2018-12-10] MEDS ORDERED: MORPHINE 4 MG/ML SYR IV PRN (19:00)
[2018-12-10] MEDS ORDERED: INSULIN -REGULAR HUMAN 50 UNIT/0.5 ML ML ONE (19:44)
[2018-12-10] MEDS ORDERED: VANCOMYCIN 500 MG in NA CHLORIDE 0.9% 100 ML IVPB ONE (20:15)
[2018-12-10] MEDS: INSULIN -REGULAR HUMAN 50 UNIT/0.5 ML ML SQ SCH (21:00)
--- NOTE | 2018-12-10 21:01 | RAD REPORT ---
EXAM DESCRIPTION: US - Extremity Venous Uni Ltd - 12/10/2018 6:57 pm CLINICAL HISTORY: Left leg pain and swelling COMPARISON: None. TECHNIQUE: Real-time sonographic evaluation of the left lower extremity deep venous system was perfo rmed. FINDINGS: Normal compressibility, flow augmentation, phasic flow and spontaneous flow are identified in the left lower extremity common femoral, superficial femoral, popliteal and posterior tibial vein s. No intraluminal filling defects seen. IMPRESSION: No DVT in the left lower extremity.
[2018-12-10] MEDS ORDERED: PIPER/TAZO/NS 3.375gm 6.750 GM/200 ML BAG ONE (21:36)
[2018-12-10 22:11] VITALS: BMI 28.6
[2018-12-11 00:28] LABS: Urine Appearance CLEAR; Urine Bilirubin NEGATIVE (NEG); Urine Blood TRACE (NEG); Urine Color YELLOW; Urine Glucose 3+ (NEG); Urine Protein 2+ (NEG); Urine Specific Gravity >=1.030 (1.005-1.030); Urine Urobilinogen 0.2 mg/dL (0.2-1.0); Urine pH 5.5 (5.0-7.0)
[2018-12-11 00:30] LABS: Urine Microscopic Reflex ORDER UMIC
[2018-12-11] MEDS: PIPER/TAZO/NS 3.375gm 3.375 GM/100 ML BAG IVPB SCH ×2 (00:56→05:12)
[2018-12-11] MEDS ORDERED: PIPER/TAZO/NS 3.375gm 3.375 GM/100 ML BAG IVPB SCH ×2 (01:00→11:00)
[2018-12-11 04:16] LABS: Urine Bacteria <20 /HPF (NONE SEEN); Urine Culture Reflex Order REFLEXED; Urine RBC <5 /HPF (NONE SEEN)
[2018-12-11] MEDS: NA CHLORIDE 0.9% 1,000 ML IV SCH (05:00)
[2018-12-11 06:03] LABS: Absolute Lymphocytes (CBC) 1.8 K/uL (0.7-4.9); Basophils % 0.9 % (0-1.3); Eosinophils % 0.5 % (0-4.4); Hematocrit 37.6 % (39.6-49.0); Lymphocytes % 9.8 % (15.3-44.8); MPV 7.3 fL (7.6-11.3); Monocytes % 7.8 % (3.3-12.3); RBC Red Blood Cell Count 4.31 M/uL (4.33-5.43)
[2018-12-11 06:23] LABS: Potassium 3.3 mmol/L (3.5-5.1)
[2018-12-11] MEDS ORDERED: GLUCAGON 1 MG/VIAL IM PRN (06:30)
[2018-12-11] MEDS ORDERED: D50W 25 GM/50 ML SYRINGE IV PRN (06:30)
--- NOTE | 2018-12-11 06:32 | P.HP ---
Certification for Inpatient Patient admitted to: Inpatient With expected LOS: >2 Midnights Practitioner: I am a practitioner with admitting privileges, knowledge of patient current condition, hospital course, and medical plan of care. Services: Services provided to patient in accordance with Admission requirements found in Title 42 Section 412.3 of the Code of Federal Regulations Patient History Date of Service: 12/10/18 Reason for admission: Diabetic foot with cellulitis History of Present Illness: Patient is a 43-year-old gentleman who came to the hospital with erythema and edema of the left foot. He said he noticed it a couple of days ago and it was a tear on his left 4th toe. Swelling and erythema got worse and is started becoming very painful. He decided to come into the emergency room for further evaluation. In the emergency room he was admitted for a diabetic foot infection. Patient also half osteomyelitis. The sore on his 4th left toe is not that deep; however,we will get an MRI to a evaluate this further. Strict blood sugar control while in the hospital. NPO pending surgery evaluation. Allergies No Known Allergies Allergy (Verified 12/11/18 01:34) Home Medications: Atorvastatin Calcium [Lipitor*] 1 tab PO DAILY 12/11/18 Empagliflozin/Metformin HCl [Synjardy Xr 5-1,000 mg Tablet] 2 tab PO DAILY 12/11 Insulin Degludec/Liraglutide [Xultophy 100 Unit-3.6MG/ml Pen] 45 units SQ DAILY 12/11/18 - Past Medical/Surgical History Has patient received pneumonia vaccine in the past: No Diabetic: Yes -: DIABETES -IDDM -: HYPERLIPIDEMIA -: none - Family History Father Medical History: Diabetes - Social History Smoking Status: Never smoker Alcohol use: No CD- Drugs: No Caffeine use: Yes Place of Residence: Home Review of Systems 10-point ROS is otherwise unremarkable Physical Examination - Vital Signs Temperature: 98.9 F Blood Pressure: 131/79 Pulse: 95 Respirations: 15 Pulse Ox (%): 97 - Physical Exam General: Alert, In no apparent distress, Oriented x3 HEENT: Atraumatic, PERRLA, Mucous membr. moist/pink, EOMI, Sclerae nonicteric Neck: Supple, 2+ carotid pulse no bruit, No LAD, Without JVD or thyroid abnormality Respiratory: Clear to auscultation bilaterally, Normal air movement Cardiovascular: Regular rate/rhythm, Normal S1 S2, No murmurs Gastrointestinal: Normal bowel sounds, Soft and benign, Non-distended, No tenderness Musculoskeletal: No clubbing, Swelling, Erythema, Tenderness, Warmth, Other ( Patient's left foot is swollen and erythematous with tenderness to palpation. It is also warm to touch.) Integumentary: No rashes, Tenderness/swelling, Erythema, Warmth Neurological: Normal speech, Normal strength at 5/5 x4 extr, Normal tone, Sensation intact, Cranial nerves 3-12 intact, Normal affect Lymphatics: No axilla or inguinal lymphadenopathy - Studies Laboratory Data (last 24 hrs) 12/10/18 16:45: Sodium 139, Potassium 3.5, BUN 17, Creatinine 1.51 H, Glucose 269 H 12/10/18 16:45: WBC 17.2 H, Hgb 11.6 L, Hct 35.7 L, Plt Count 431 H Assessment & Plan - Problems (Diagnosis) (1) Diabetic foot infection Current Visit: Yes Status: Acute (2) Osteomyelitis Current Visit: Yes Status: Acute (3) Cellulitis of left foot Current Visit: Yes Status: Acute - Plan 1. Continue with IV antibiotic 2. Continue with local wound care 3. Wound care consultation/surgical consultation 4. Gentle IV hydration 5. Monitor CBC 6. Strict blood sugar monitoring 7. Pain control 8. GI and DVT prophylaxis Discharge Plan: Home Plan to discharge in: Greater than 2 days - Advance Directives Does patient have a Living Will: No Does patient have a Durable POA for Healthcare: No - Code Status/Comfort Care Code Status Assessed: Yes Code Status: Full Code Critical Care: No Time Spent Managing PTS Care (In Minutes): 45
[2018-12-11] MEDS: INSULIN -REGULAR HUMAN 50 UNIT/0.5 ML ML SQ SCH ×4 (07:30→21:20)
--- NOTE | 2018-12-11 07:53 | EKG ---
Test Date: 2018-12-10 Test Time: 18:01:58 Chop Saw Operator: ZULAY MEASUREMENT RESULTS: Intervals: Rate: 111 NJ: 140 QRSD: 106 QT: 330 QTc: 448 Preemption: P: 58 NJ: 140 QRS: 64 T: 10 INTERPRETIVE STATEMENTS: Sinus tachycardia Otherwise normal ECG No previous ECG available for comparison Electronically Signed On 12-11-18 07:53:02 CDT by Chicho Gallagher
[2018-12-11] MEDS: VANCOMYCIN 1.5 GM in NA CHLORIDE 0.9% 500 ML IVPB SCH (09:13)
[2018-12-11] MEDS: BUPIVACA 0.25%/EPI 0.0005% MDV 50 ML VIAL ONE ×2 (10:48→11:45)
[2018-12-11] MEDS ORDERED: TRAMADOL HCL 50 MG TAB PO PRN (10:50)
--- NOTE | 2018-12-11 10:59 | P.PN ---
Subjective Date of Service: 12/11/18 Primary Care Provider: Dr. Johnson([facility] [place]) Chief Complaint: Diabetic foot with cellulitis Subjective: Doing well Physical Examination - Vital Signs Temperature: 98.1 F Blood Pressure: 138/79 Pulse: 101 Respirations: 20 Pulse Ox (%): 97 - Physical Exam General: Alert, In no apparent distress, Oriented x3, Cooperative HEENT: Atraumatic Neck: Supple Respiratory: Clear to auscultation bilaterally, Normal air movement Cardiovascular: Normal pulses, Regular rate/rhythm Gastrointestinal: Normal bowel sounds, Soft and benign, Non-distended Integumentary: Other (Ulcer to the left 4th toe. Swelling, erythema and induration noted to the area.) Neurological: Normal speech, Normal strength at 5/5 x4 extr, Normal tone, Normal affect - Studies Laboratory Data (last 24 hrs) 12/10/18 16:45: Sodium 139, Potassium 3.5, BUN 17, Creatinine 1.51 H, Glucose 269 H 12/10/18 16:45: WBC 17.2 H, Hgb 11.6 L, Hct 35.7 L, Plt Count 431 H Medications List Reviewed: Yes Assessment & Plan Discharge Plan: Home Plan to discharge in: Greater than 2 days Physician Review Additional Text: Impression: Osteomyelitis of the left 4th toe and metatarsal region with diabetic foot ulcer Diabetes mellitus type 2, insulin-dependent Hyperlipidemia Plan: Osteomyelitis of the left 4th toe and metatarsal region with diabetic foot ulcer : IV antibiotics adjusted to vancomycin and cefepime. Patient NPO for anticipation of surgical intervention. Await surgery recommendations. Nurses report that patient will have amputation of the left 4th toe. Patient may not require long-term IV antibiotic therapy after amputation. Will check arterial Doppler for PVD. Will discuss further with surgery about plan of care. Diabetes mellitus type 2, insulin-dependent: Continue with basal insulin. Will monitor and adjust appropriately. Hyperlipidemia: Continue with medication. Time Spent Managing Pts Care (In Minutes): 55
[2018-12-11] MEDS ORDERED: D50W 25 GM/50 ML SYRINGE IV ONE (11:02)
[2018-12-11] MEDS ORDERED: PROPOFOL 200 MG/20 ML VIAL IV ONE (11:04)
[2018-12-11] MEDS ORDERED: MIDAZOLAM HCL 2 MG/2 ML INJ ONE (11:04)
[2018-12-11] MEDS ORDERED: FENTANYL CITR 100 MCG/2 ML ONE ×2 (11:04→12:11)
[2018-12-11] MEDS ORDERED: LIDOCAINE 2% MPF 5 ML VIAL ONE (11:05)
[2018-12-11] MEDS ORDERED: ONDANSETRON 4 MG/2 ML VIAL ONE (11:06)
[2018-12-11] MEDS: NA CHLORIDE 0.9% 1,000 ML ONE ×2 (11:27→11:39)
[2018-12-11 11:37] LABS: Thyroid Stimulating Hormone 0.517 uIU/mL (0.360-3.740)
--- NOTE | 2018-12-11 12:11 | CON ---
Date of Consultation: 12/11/2018 Brief History Of Present Illness: The patient is a 43-year-old gentleman who presents to [facility] after stubbing his left foot fourth toe several days ago and noticed that it was getting s ignificantly worse. All of a sudden he started having redness, swelling, progressive pain in the rem ainder of the foot and wound opened up on the medial aspect of that toe. He therefore came to the ergency room with the above-stated planes. He had no other constitutional complaints and no other is sues. Past Medical History: Significant for diabetes, hyperlipidemia. Past Surgical History: Negative. Allergies: NO KNOWN DRUG ALLERGIES. Medications: At home include Lipitor, Synjardy and Xultophy. Social History: He denies smoking, alcohol, or recreational drug use. Review of Systems: A 10-point review of systems other than HPI, denies. Physical Examination: Vital Signs: At the time of my examination, his BMI was 28.6. His blood pressure 131/79, pulse 95, respiratory rate 16, temperature 98.9. General: He is awake, alert, oriented. Psychiatric: Appropriate. Conversive. HEENT: Normocephalic. Sclerae anicteric. Mucous membranes are moist. Oropharynx clear. Neck: Supple. No JVD. Chest: Normal expansion and excursion. Cardiovascular: Regular rate and rhythm. Pulmonary: Clear to auscultation bilaterally. Abdomen: Soft. Extremities: No clubbing or cyanosis. There is erythema and edematous changes to the left foot pred ominantly over the fourth toe of the left foot. There is swelling and enlargement of this toe, howev er, has decreased sensation on examination. Laboratory Data: Reveals a white blood count 18.2, hemoglobin 12.8, hematocrit 37.6, platelet count is 508, neutrophils were 81%. His sodium 141, potassium 3.3, chloride 109, carbon dioxide 24, BUN 14 , creatinine 1.2, glucose is 92. His C-reactive protein was 119. He had imaging performed which inc luded a foot x-ray, which was officially read as osteomyelitis in the fourth toe with extensive bony degenerative changes involving possibly the metatarsal head as well. He had a DVT study of the left lower extremity, which was negative for DVT as well and an ankle x-ray, which showed no acute bony ab normalities or fracture dislocations. Assessment And Plan: This is a 43-year-old male who has osteomyelitis of left foot fourth toe. Surg ical plan includes: 1.IV fluid hydration. 2.Antibiotic coverage. 3.Amputation. I have explained the risks, benefits, and alternatives of amputation of the fourth to e of the left foot, including but not limited to bleeding, infection, damage to surrounding tissue, n eed further operating procedures, ongoing wound care. The patient agrees to proceed as indicated. Thank you for this interesting consult. ALISHA/ARAM Voice ID: [id number] Report ID: [id number]
--- NOTE | 2018-12-11 12:36 | P.OP ---
Preoperative diagnosis: Osteomyelitis of LEFT 4th toe Postoperative diagnosis: Osteomyelitis of LEFT 4th toe Primary procedure: Amputation of LEFT 4th Toe Anesthesia: GETA + Local Estimated blood loss: <10cc Specimen: toe Findings: Osteomyelitis of LEFT 4th toe Complications: None Drain(s): Other (Florence hankins) Transferred to: Recovery Room Condition: Good
[2018-12-11] MEDS ORDERED: VANCOMYCIN 1.5 GM in NA CHLORIDE 0.9% 500 ML IVPB SCH (14:00)
[2018-12-11] MEDS: CEFEPIME/SWI 1gm 10 ML IV SCH ×2 (14:00→21:19)
--- NOTE | 2018-12-11 16:09 | RAD REPORT ---
EXAM DESCRIPTION: US - Upper Lower Extrem Art Multi - 12/11/2018 3:26 pm CLINICAL HISTORY: Peripheral arterial disease, leg COMPARISON: None. TECHNIQUE: Bilateral brachial artery pressure measurements were obtained. Waveforms were obtained al kota the length of each lower extremity. Ankle pressure measurements were obtained with index values c alculated. Visual inspection of the lower extremity arterial tree performed. FINDINGS: Left brachial artery pressure measurement is normal. Right brachial artery pressure measur ement could not be obtained. No CURTIS values could be calculated. Vessels could not be compressed at ma ximum available pressure. Triphasic waveform pattern and identifiable in the right common femoral, superficial femoral and popl iteal arteries. Triphasic waveform seen in the right dorsalis pedis artery with biphasic posterior ti bial artery waveform pattern. Left common femoral artery was triphasic with superficial femoral arter y triphasic and biphasic. Left popliteal artery is biphasic to monophasic. Posterior tibial artery mo nophasic. Bilateral groin lymph nodes are present more prominent on the left. Right common femoral artery peak systolic velocity was 92 cm/seconds with femoral artery velocities r anging from 91-100 65-117 cm/second. Popliteal artery was 65 cm/second on the right. Dorsalis pedis a nd posterior tibial artery velocities were 65 cm/second and 70 cm/second respectively. Left common femoral artery velocity was 118 cm/second. Femoral artery velocities range from 102-120 c m/second. Popliteal velocity was 102 cm/second. Posterior tibial artery velocity reached 202 cm/secon d. No dorsalis pedis artery waveform could be obtained. No focal flow restricting lesion identifiable. IMPRESSION: Left lower extremity peripheral vascular disease is present at least moderate in severit y with no dorsalis pedis artery identifiable. No significant right lower extremity peripheral arterial disease identifiable. CURTIS values could not be calculated. Ankle vessels could not be compressed at maximum available pressu re.
[2018-12-11] MEDS ORDERED: ENOXAPARIN 40 MG/0.4 ML SQ SCH (17:00)
[2018-12-11] MEDS ORDERED: ENOXAPARIN 30 MG/0.3 ML SQ SCH (17:00)
--- NOTE | 2018-12-11 17:52 | OP ---
Date of Procedure: 12/11/2018 Surgeon: Sage Wells MD, Brief History Of Present Illness: The patient is a 43-year-old male who presented with osteomyelitis of the fourth toe of the left foot. He stubbed his toe while back and ultimately had worsening cell ulitis, swelling and pain associated with this. The pain eventually went into numbness and now he morris s discoloration, cellulitic changes and x-ray confirmed osteomyelitis of the fourth toe on the left f oot. Preoperative Diagnosis: Osteomyelitis of the left fourth toe. Postoperative Diagnosis: Osteomyelitis of the left fourth toe. Procedure Performed: Amputation of the left foot fourth toe. Anesthesia: General endotracheal plus local with 0.25% Marcaine with epinephrine. Estimated Blood Loss: Less than 2 cc. Specimen: Fourth toe of the left foot. Findings: Consistent with osteomyelitis of the fourth toe of the left foot. Complications: None. Drains: A Telfa wick was placed. Disposition: Transferred to recovery room in good condition. Procedure In Detail: After informed consent was obtained, the patient was brought to the operating r oom, prepped in the usual sterile fashion. After adequate anesthesia achieved, an area was demarcate d around the area of infection and cellulitis preserving only good viable tissue around the margins o f the fourth toe of the left foot. After this was performed, a 15 blade scalpel was used to dissect down and cut the damaged tissue and around the circumscribed margin. Electrocautery was used to diss ect down to the metatarsophalangeal joint. Ultimately, this was quite easily with electroc autery and this toe was sent off for pathologic examination. Bleeding was easily controlled with angela ctrocautery. The area was copiously irrigated. The metatarsal head was examined at this time and fo und to be smooth and clean without any evidence of obvious osteomyelitis. There was some discolored loculated fluid collections in the surrounding tissues. However, these were all cleaned up and all l oculations were brought up and broken up. A rongeur was used to take out all remaining necrotic tiss ue and the area was curetted until completely clean. Bleeding was easily controlled with electrocaut myrtle. The area was copiously irrigated multiple times until completely clear and the surgical site wa s then closed using a vertical mattress suture with #1 Prolene. A Telfa wick was placed into the cav ity and brought out through the incision to allow for drainage. A sterile dressing was placed over t op. The patient tolerated the procedure well without evidence of complication and transferred to the PACU in good condition. All counts were correct at the end of the case. ALISHA/ARAM Voice ID: [id number] Report ID: [id number]
[2018-12-11] MEDS ORDERED: ATORVASTATIN 10 MG TAB PO SCH (21:00)
[2018-12-11] MEDS ORDERED: CEFEPIME 1 GM/VIAL IV SCH (21:00)
[2018-12-11] MEDS ORDERED: INSULIN GLARGINE 100 UNITS/ML SQ SCH (21:00)
[2018-12-11 23:38] VITALS: O2SAT 97
[2018-12-12] MEDS ORDERED: NA CHLORIDE 0.9% 250 ML ONE (00:40)
[2018-12-12] MEDS: VANCOMYCIN 1.5 GM in NA CHLORIDE 0.9% 500 ML IVPB SCH (01:00)
[2018-12-12] MEDS: HYDROCODONE/APAP 7.5/325 MG TAB PO PRN ×2 (02:05→08:28)
[2018-12-12 05:59] LABS: Absolute Lymphocytes (CBC) 1.8 K/uL (0.7-4.9); Basophils % 0.3 % (0-1.3); Eosinophils % 0.4 % (0-4.4); Hematocrit 31.2 % (39.6-49.0); Lymphocytes % 11.6 % (15.3-44.8); MPV 7.1 fL (7.6-11.3); Monocytes % 8.1 % (3.3-12.3); RBC Red Blood Cell Count 3.58 M/uL (4.33-5.43)
[2018-12-12 06:13] LABS: Magnesium 2.2 mg/dL (1.8-2.4); Potassium 3.3 mmol/L (3.5-5.1)
[2018-12-12] MEDS: INSULIN -REGULAR HUMAN 50 UNIT/0.5 ML ML SQ SCH (07:30)
[2018-12-12] MEDS ORDERED: POTASSIUM CL SA 10 MEQ TAB PO ONE (08:16)
[2018-12-12] MEDS: CEFEPIME/SWI 1gm 10 ML IV SCH (08:28)
--- NOTE | 2018-12-12 08:34 | P.DS ---
Admission Date: 12/10/18 Discharge Date: 12/12/18 Primary Care Provider: Dr. Johnson([facility] [place]) Disposition: ROUTINE DISCHARGE Discharge Condition: GOOD Reason for Admission: Diabetic foot with cellulitis Consultations: Surgery-Dr. Wells Procedures: Xray: FINDINGS: An acute traumatic fracture is not identified. Soft tissues of the fourth digit are significantly thickened. There is very extensive bone destruction with near complete loss of the proximal, middle and distal fourth phalanges. Bone loss changes are evident as well in the fourth metatarsal head. Arterial tree calcifications are present. No other bone destructive process seen. No air in the soft tissues. IMPRESSION: Extensive left fourth toe osteomyelitis change with near complete destruction of the fourth toe. Bone destructive changes involve the fourth metatarsal head as well. Venous doppler: FINDINGS: Normal compressibility, flow augmentation, phasic flow and spontaneous flow are identified in the left lower extremity common femoral, superficial femoral, popliteal and posterior tibial veins. No intraluminal filling defects seen. IMPRESSION: No DVT in the left lower extremity. Arterial Doppler: FINDINGS: Left brachial artery pressure measurement is normal. Right brachial artery pressure measurement could not be obtained. No CURTIS values could be calculated. Vessels could not be compressed at maximum available pressure. Triphasic waveform pattern and identifiable in the right common femoral, superficial femoral and popliteal arteries. Triphasic waveform seen in the right dorsalis pedis artery with biphasic posterior tibial artery waveform pattern. Left common femoral artery was triphasic with superficial femoral artery triphasic and biphasic. Left popliteal artery is biphasic to monophasic. Posterior tibial artery monophasic. Bilateral groin lymph nodes are present more prominent on the left. Right common femoral artery peak systolic velocity was 92 cm/seconds with femoral artery velocities ranging from 91-100 65-117 cm/second. Popliteal artery was 65 cm/second on the right. Dorsalis pedis and posterior tibial artery velocities were 65 cm/second and 70 cm/second respectively. Left common femoral artery velocity was 118 cm/second. Femoral artery velocities range from 102-120 cm/second. Popliteal velocity was 102 cm/second. Posterior tibial artery velocity reached 202 cm/second. No dorsalis pedis artery waveform could be obtained. No focal flow restricting lesion identifiable. IMPRESSION: Left lower extremity peripheral vascular disease is present at least moderate in severity with no dorsalis pedis artery identifiable. No significant right lower extremity peripheral arterial disease identifiable. CURTIS values could not be calculated. Ankle vessels could not be compressed at maximum available pressure. Surgery: Date of procedure 12/11/2018 Surgeon: Dr. Sage Wells Preoperative diagnosis: Osteomyelitis of the left 4th toe Postop diagnosis: Osteomyelitis of the left 4th toe Primary procedure: Amputation of the left 4th toe Findings: Osteomyelitis of the left 4th toe Complications: None Drain: Telfa awake Condition good Medical Problem List: Osteomyelitis of the left 4th toe and metatarsal region with diabetic foot ulcer complicated with left moderate lower extremity peripheral vascular disease status post amputation of the left 4th toe Diabetes mellitus type 2, insulin-dependent Hyperlipidemia Anemia likely iron deficiency Brief History of Present Illness: 43-year-old male with diabetes came to the emergency room with increased swelling, erythema and ulcer to the left 4th toe. X-ray showed osteomyelitis. Patient was admitted for treatment. Hospital Course: Patient presented with left 4th toe erythema, pain and swelling. Patient found to have osteomyelitis of the left 4th toe and metatarsal region with diabetic foot ulcer. Patient was admitted for treatment. Surgery was consulted. Surgery recommended surgical intervention. Prior to procedure venous Doppler showed no DVT. Arterial Doppler showed moderate left lower extremity peripheral vascular disease. Patient received IV antibiotic therapy. Left 4th toe amputation was performed. Patient tolerated the procedure well. Telfa wick in place. Pro calcitonin/lactic acid within normal range. White count improved. At discharge patient will continue with wound care daily including unpacking and packing of Telfa wick daily. He is to clean area with normal saline then pack. Patient will continue on Bactrim DS 1 pill twice daily and doxycycline 100 mg 1 pill twice daily for 7 days. Wound culture obtained. A limited supply of tramadol 50 mg 1 pill 3 times a day as needed for pain will be provided. Patient may also use Tylenol as needed for pain. Patient will also be given Bactroban ointment to be used daily and applied to nares and umbilicus. Recommend follow up with surgery in 1-2 weeks to follow up wound culture results and hospitalization. Prior to discharge, Physical therapy will assess patient and make recommendations including fall precautions. Patient to elevate leg when sitting or lying. Nonweightbearing status to the left foot is recommended. Patient may return to work after he is cleared by surgery at follow up. Recommend to follow up with his PCP in 1 week to follow up this hospitalization and continue his care. Recommend to recheck lab-BMP and CBC in 1-2 weeks to follow up this hospitalization. Patient with diabetes mellitus type 2, insulin dependent. Blood sugar remained stable. Hemoglobin A1c 9.3. Patient requires better control of his diabetes. At discharge he will continue with his current medications: Empaglifozin/ Metformin 10/999 mg 2 pills daily and Insulin Degludec/Liraglutide 45 units sc daily. Recommend to maintain blood sugars less than 140 fasting and less than 200 after meals. Further adjustment can be done by his PCP. Patient with hyperlipidemia. Patient previously taking Lipitor. At discharge this will be increased to Lipitor 40 mg daily due to his peripheral vascular disease. Further monitoring can be done by his PCP. Patient also had mild anemia. Likely underlying iron deficiency. Iron and B12 levels will be obtained. This can be followed up as an outpatient. Will recommend multi vitamin with folic acid daily. This can be further addressed by his PCP. As mentioned above patient found to have moderate left lower extremity peripheral vascular disease. At discharge patient will continue with aspirin 81 mg daily. Recommend to follow up with cardiology as an outpatient to further evaluate. Patient may require endovascular intervention in the future to further address. Will provide education. Will recommend no use of nonsteroidal anti-inflammatories while on Bactrim. Vital Signs/Physical Exam: Temp Pulse Resp BP Pulse Ox 97.0 F 80 16 109/68 99 12/12/18 04:00 12/12/18 04:00 12/12/18 04:00 12/12/18 04:00 12/12/18 04:00 General: Alert, In no apparent distress, Oriented x3, Cooperative HEENT: Atraumatic Neck: Supple Respiratory: Clear to auscultation bilaterally, Normal air movement Cardiovascular: Normal pulses, Regular rate/rhythm Gastrointestinal: Normal bowel sounds, Soft and benign, Non-distended Musculoskeletal: Other (Packing to left foot in place.) Neurological: Normal speech, Normal strength at 5/5 x4 extr, Normal tone, Normal affect Laboratory Data at Discharge: WBC 15.4 K/uL (4.3-10.9) H D 12/12/18 05:23 Hgb 10.6 g/dL (13.6-17.9) L 12/12/18 05:23 Hct 31.2 % (39.6-49.0) L D 12/12/18 05:23 Plt Count 383 K/uL (152-406) D 12/12/18 05:23 Sodium 140 mmol/L (136-145) 12/12/18 05:42 Potassium 3.3 mmol/L (3.5-5.1) L 12/12/18 05:42 BUN 16 mg/dL (7-18) 12/12/18 05:42 Creatinine 1.29 mg/dL (0.55-1.3) 12/12/18 05:42 Glucose 85 mg/dL (74-106) 12/12/18 05:42 Magnesium 2.2 mg/dL (1.8-2.4) 12/12/18 05:42 Home Medications: Empagliflozin/Metformin HCl [Synjardy Xr 5-1,000 mg Tablet] 2 tab PO DAILY 12/11 Insulin Degludec/Liraglutide [Xultophy 100 Unit-3.6MG/ml Pen] 45 units SQ DAILY 12/11/18 Aspirin [Aspirin EC 81 MG] 81 mg PO DAILY #90 tablet. 12/12/18 Atorvastatin Calcium [Lipitor] 40 mg PO DAILY #30 tablet 12/12/18 Doxycycline Hyclate 100 mg PO BID #14 tablet 12/12/18 Folic Acid 1 mg PO DAILY #90 tablet 12/12/18 Multivitamin [Daily Multivitamin] 1 each PO DAILY #90 tablet 12/12/18 Mupirocin Oint [Bactroban 2% Ointment] 8 appl TOP SEECOM #1 tube 12/12/18 Sulfamethoxazole/Trimethoprim [Bactrim Ds Tablet] 1 each PO BID #14 tablet 12/12 Tramadol HCl [Ultram] 50 mg PO TID PRN #20 tablet 12/12/18 New Medications: Aspirin [Aspirin EC 81 MG] 81 mg PO DAILY #90 tablet. Atorvastatin Calcium [Lipitor] 40 mg PO DAILY #30 tablet Mupirocin Oint [Bactroban 2% Ointment] 8 appl TOP SEECOM #1 tube RX: Doxycycline Hyclate 100 mg PO BID #14 tablet RX: Folic Acid 1 mg PO DAILY #90 tablet RX: Multivitamin [Daily Multivitamin] 1 each PO DAILY #90 tablet RX: Tramadol HCl [Ultram] 50 mg PO TID PRN #20 tablet PRN Reason: Pain Scale 2-4 (Mild) Sulfamethoxazole/Trimethoprim [Bactrim Ds Tablet] 1 each PO BID #14 tablet Patient Discharge Instructions: 1. Recommend to follow up with his PCP in 1 week to follow up this hospitalization. 2. Patient presented with left 4th toe erythema, pain and swelling. Patient found to have osteomyelitis of the left 4th toe and metatarsal region with diabetic foot ulcer. Patient was admitted for treatment. Surgery was consulted. Surgery recommended surgical intervention. Prior to procedure venous Doppler showed no DVT. Arterial Doppler showed moderate left lower extremity peripheral vascular disease. Patient received IV antibiotic therapy. Left 4th toe amputation was performed. Patient tolerated the procedure well. Telfa wick in place. Pro calcitonin/ lactic acid within normal range. White count improved. At discharge patient will continue with wound care daily including unpacking and packing of Telfa wick daily. He is to clean area with normal saline then pack. Patient will continue on Bactrim DS 1 pill twice daily and doxycycline 100 mg 1 pill twice daily for 7 days. Wound culture obtained. A limited supply of tramadol 50 mg 1 pill 3 times a day as needed for pain will be provided. Patient may also use Tylenol as needed for pain. Patient will also be given Bactroban ointment to be used daily and applied to nares and umbilicus. Recommend follow up with surgery in 1-2 weeks to follow up wound culture results and hospitalization. Prior to discharge, Physical therapy will assess patient and make recommendations including fall precautions. Patient to elevate leg when sitting or lying. Nonweightbearing status to the left foot is recommended. Patient may return to work after he is cleared by surgery at follow up. Recommend to follow up with his PCP in 1 week to follow up this hospitalization and continue his care. Recommend to recheck lab-BMP and CBC in 1-2 weeks to follow up this hospitalization. 3. Patient with diabetes mellitus type 2, insulin dependent. Blood sugar remained stable. Hemoglobin A1c 9.3. Patient requires better control of his diabetes. At discharge he will continue with his current medications: Empaglifozin/Metformin 10/999 mg 2 pills daily and Insulin Degludec/Liraglutide 45 units sc daily. Recommend to maintain blood sugars less than 140 fasting and less than 200 after meals. Further adjustment can be done by his PCP. 4. Patient with hyperlipidemia. Patient previously taking Lipitor. At discharge this will be increased to Lipitor 40 mg daily due to his peripheral vascular disease. Further monitoring can be done by his PCP. 5. Patient also had mild anemia. Likely underlying iron deficiency. Iron and B12 levels will be obtained. This can be followed up as an outpatient. Will recommend multi vitamin with folic acid daily. This can be further addressed by his PCP. 6. As mentioned above patient found to have moderate left lower extremity peripheral vascular disease. At discharge patient will continue with aspirin 81 mg daily. Recommend to follow up with cardiology as an outpatient to further evaluate. Patient may require endovascular intervention in the future to further address. Will provide education. 7. Will recommend no use of nonsteroidal anti-inflammatories while on Bactrim. Diet: ADA Activity: Non-weight bearing (To the left foot) Time spent managing pt's care (in minutes): 55
[2018-12-12 09:54] LABS: Ferritin 416.8 ng/mL (26-388)
[2018-12-12 10:40] VITALS: BP 123/72; TEMP 97.4
== END 2018-12-12 11:05 | disposition home or self-care (01) | DRG 617 ==
LOC: ER 15:48 → ERHOLD 18:49 → 2ND 20:03
PROVIDERS: ADMIT Hospitalist; ATTEND Hospitalist
PROC: 0Y6W0Z0 Detachment at Left 4th Toe, Complete, Open Approach (ICD-10-PCS; principal; 2018-12-11 11:30)
DX: E11.69 Type 2 diabetes mellitus with other specified complication (principal); M86.9 Osteomyelitis, unspecified; E11.621 Type 2 diabetes mellitus with foot ulcer; E11.51 Type 2 diabetes mellitus with diabetic peripheral angiopathy without gangrene; E78.5 Hyperlipidemia, unspecified; D50.9 Iron deficiency anemia, unspecified
CPT/HCPCS: 36415; 80048; 81003; 81015; 82607; 82728; 82962; 83036; 83540; 83605; 83735; 84145; 84439; 84443; 84466; 85025; 85652; 86140; 87040; 87070; 87077; 87086; 87088; 87186; 87205; 88305; 88311; 93005; 93923; 93971; 96361; 96365; 96375; 97162; 99285; J0692; J1650; J2250; J2405; J2543; J2704; J3010; J3370; J7030